=== PATIENT | male | born 1975 | race Caucasian/White ===

== ENCOUNTER 2025-04-03 07:47 | Inpatient (IN) | payer OTHER ==
[~2025-04-03] VITALS: Ht 170.2 cm; Wt 81.7 kg
[2025-04-03 12:29] VITALS: BP 131/103
[2025-04-03] MEDS ORDERED: ABILIFY MYCITE5 M2 PO (13:08)
[2025-04-03] MEDS ORDERED: ATOR80 PO (13:09)
[2025-04-03] MEDS ORDERED: Aspir 8181 MG PO (13:09)
[2025-04-03] MEDS ORDERED: BUSP5 PO (13:11)
[2025-04-03] MEDS ORDERED: CLOBETASOL EMOL15 G1 (13:11)
[2025-04-03] MEDS ORDERED: DULO60 PO (13:12)
[2025-04-03] MEDS ORDERED: CYMBALTA30 M1 PO (13:12)
[2025-04-03] MEDS ORDERED: HYDHCL25 PO (13:13)
[2025-04-03] MEDS ORDERED: LORA.5 PO (13:15)
[2025-04-03] MEDS ORDERED: LOSA50 PO (13:16)
[2025-04-03] MEDS ORDERED: NITR.4SL SL (13:18)
[2025-04-03] MEDS ORDERED: REVATIO20 MG PO (13:21)
[2025-04-03] MEDS ORDERED: TICA90TA PO (13:22)
[2025-04-03] MEDS ORDERED: TIZA4 PO (13:23)
[2025-04-03] MEDS ORDERED: LORazepam 2 MG Tab PO PRN (14:35)
[2025-04-03] MEDS ORDERED: OLANZapine ODT 10 MG Tab MM PRN (14:35)
[2025-04-03] MEDS ORDERED: Ibuprofen 600 MG Tab PO PRN (14:35)
[2025-04-03] MEDS ORDERED: LORazepam 2 MG/ML 1ML Injection IM PRN (14:35)
[2025-04-03] MEDS ORDERED: DiphenhydrAMINE HCl 50 MG/ML 1ML Vial IM PRN (14:40)
[2025-04-03] MEDS ORDERED: Acetaminophen 325 MG TABLET PO PRN (14:40)
[2025-04-03] MEDS ORDERED: Haloperidol Lactate Inj. 5 MG/ML Injection IM PRN (14:40)
[2025-04-03] MEDS ORDERED: HydrOXYzine Pamoate 50 MG Cap PO PRN (14:40)
[2025-04-03] MEDS ORDERED: Haloperidol 5 MG Tab PO PRN (14:40)
[2025-04-03] MEDS ORDERED: Calcium Carbonate 500 MG Tab Chew PO PRN (14:40)
[2025-04-03] MEDS ORDERED: Aluminum Hydroxide 320MG/5ML 473 ML PO PRN (14:40)
[2025-04-03] MEDS ORDERED: Polyethylene Glycol 3350 17 gm PO PRN (14:45)
[2025-04-03] MEDS ORDERED: Ondansetron 4 MG SoluTab MM PRN (14:45)
[2025-04-03] MEDS ORDERED: DiphenhydrAMINE HCl 50 MG Cap PO PRN (14:45)
[2025-04-03] MEDS ORDERED: TraZODone HCl 50 MG Tab PO PRN (14:45)
[2025-04-03] MEDS ORDERED: Melatonin 3 MG Tab PO PRN (14:45)
--- NOTE | 2025-04-03 15:06 | NUR ---
ADMISSION NOTE PT ADMITTED FROM [facility] [place] IN [place]. PT BROUGHT IN AND 2 RN SKIN CHECK DONE WITH OSMIN PITTS. PT ORIENTED TO THE UNIT AND ROOM. PT ATE LUNCH AND INTAKE ASSESSMENT COMPLETED. MEDICATION RECONCILATION COMPLETED. PT ADMITTED FOR INCREASED DEPRESSION AND ANXIETY FOLLOWING HIS AND LOSING HIS JOB.
[2025-04-03] MEDS ORDERED: Nicotine Polacrilex 2 MG Gum PO PRN (16:05)
--- NOTE | 2025-04-03 16:48 | NUR ---
SHIFT SUMMARY PT A/O X4; PLEASANT AND COOPERATIVE WITH CARE. HE WAS ADMITTED FROM [facility] IN [place] FOR INCREASED DEPRESSION AND ANXIETY. HE RECENTLY LOST HIS JOB AND HE AND HIS HAVE . HE CURRENTLY DENIES SI, HI, OR ANY HALLUCINATIONS. HE EXPERIENCED AN EPISODE OF PANIC/ANXIETY AND WAS TREATED PER EMR WITH GOOD EFFECT. HE HAS PARTICIPATED IN ALL GROUPS AND MEALS. HE SHOWERED AND HAS BEEN IN THE DAY ROOM FOR THE MAJORITY OF THE SHIFT. HE IS MONITORED VIA Q15 ROUNDING FOR SAFETY AND WELLNESS.
[2025-04-03 20:00] VITALS: BP 138/83
--- NOTE | 2025-04-04 04:17 | NUR ---
SHIFT SUMMARY: PATIENT WAS IN HIS ROOM AT THE BEGINNING OF THE SHIFT, RESTING ON HIS BED. HE DENIED SUICIDAL IDEATION OR THOUGHTS OF SELF HARMING. HE STATED, "I FEEL SAFE HERE" ([facility]). HE PARTICIPATED IN SNACK AND WRAP UP GROUP AT 1999, AND WAS COMPLIANT WITH EVENING MEDICATIONS. HE STAYED UP FOR A SHORT WHILE AFTER SNACK, THEN WENT TO BED, WHERE HE WAS NOTED TO BE RESTING QUIETLY WITH EYES CLOSED AND RESPIRATIONS CONFIRMED. CONTINUING TO MONITOR FOR SAFETY WITH Q15 MINUTE CHECKS.
[2025-04-04 06:36] LABS: CHOL/HDL RATIO 3.2; Cholesterol 99 mg/dL (50-200); HDL Cholesterol 31 mg/dL (>39); LDL/HDL RATIO 1.5; Low Density Lipoprotein Chol 47 mg/dL (0-110); Triglycerides 105 mg/dL (30-160); Very Low Density Lipoprot Chol 21 mg/dL (6-32)
[2025-04-04 08:05] VITALS: BP 141/106
[2025-04-04] MEDS ORDERED: Multivitamins 1 Tab PO SCH (09:00)
[2025-04-04] MEDS ORDERED: Nitroglycerin 0.4 MG SUBL SL PRN (10:00)
[2025-04-04] MEDS ORDERED: BusPIRone HCl 5 MG Tab PO PRN (10:05)
[2025-04-04] MEDS ORDERED: TiZANidine HCl 4 MG Tab PO PRN (10:05)
[2025-04-04] MEDS ORDERED: DULoxetine HCL 30 MG Cap DR PO ONE (10:45)
[2025-04-04] MEDS ORDERED: Aspirin 81 MG Chew PO ONE (10:45)
[2025-04-04] MEDS ORDERED: DULoxetine HCL 60 MG Capsule DR PO ONE (10:45)
[2025-04-04] MEDS ORDERED: ARIPiprazole 5 MG Tab PO ONE (10:45)
[2025-04-04] MEDS ORDERED: Losartan Potassium 50 MG Tab PO ONE (10:45)
[2025-04-04] MEDS ORDERED: Atorvastatin 40 MG Tab PO ONE (10:50)
[2025-04-04] MEDS ORDERED: Multivitamins 1 Tab PO ONE (10:50)
[2025-04-04 14:03] VITALS: BP 133/103
--- NOTE | 2025-04-04 14:21 | NUR ---
Patient came up to the nursing desk during 1400 group and reported that his arms feel madelaine. vs were taken. diastolic bp slightly elevated. temp 99.3. Patient reports that he did become anxious during group. He plans to have snack and take some time for himself.
[2025-04-04 16:03] VITALS: BP 127/95
--- NOTE | 2025-04-04 16:04 | NUR ---
Patient has been attending groups today. No safety or behavioral concerns. Patient denies thoughts of suicide and self harm, he rates his depression/anxiety 8/. He was given a PRN vistaril this am, before his own medications were ordered. The provider put orders in for his own medications, and then they were given. Patient is not having homicidal thoughts or hallucinations but he is teary. Patient and recently seperated and patient is having a hard time adjusting to the seperation and to the loss of his job. He reports that he spoke with the doctor and told the doctor that he wants to leave on Wednesday. This is unconfirmed information. Patient reports anxiety about discharge transportation. This sports writer educated the patient on the estate planner and how she arranges transportation for patients. Patient then went back into the day area. Check vital sign entries, as they were taken 2x after patient reported that his arms were tingly- second set of vitals are improved.
[2025-04-04] MEDS ORDERED: Ticagrelor 90 MG TABLET PO SCH (21:00)
--- NOTE | 2025-04-05 04:19 | NUR ---
SHIFT SUMMARY: PATIENT WAS IN HIS ROOM LYING ON HIS BED AT THE BEGINNING OF THE SHIFT. HE STATED THAT HE WAS "DOING BETTER" AND "I HOPE TO DISCHARGE SOON". HE ADMITTED TO "SOME SADNESS AND DEPRESSION" BUT STATED "I THINK I CAN COPE WITH IT BETTER." HE HAS HOPES TO MOVE BACK IN WITH HIS , BUT DESPAIR WHEN HE THINKS ABOUT HOW HE IS UNEMPLOYED AT THIS TIME. HE DENIED SUICIDAL IDEATION OR THOUGHTS OF SELF HARMING. HE PARTICIPATED IN SNACK AND WRAP UP GROUP AT 1999 IN THE DINING AREA. HE WAS COMPLIANT WITH MEDICATION ADMINISTRATION. HE WENT BACK TO BED AFTER TAKING HIS MEDICATION AND WAS NOTED TO BE RESTING QUIETLY WITH EYES CLOSED AND RESPIRATIONS CONFIRMED FOR THE REMAINDER OF THE SHIFT. CONTINUING TO MONITOR FOR SAFETY WITH Q15 MINUTE CHECKS.
[2025-04-05] MEDS ORDERED: Metoclopramide HCl 10 MG Tab PO ONE (08:15)
--- NOTE | 2025-04-05 08:56 | NUR ---
PT C/O NAUSEA THIS AM AND CONTINUED VOMITING. SPOKE WITH MD AND OBTAINED ORDER FOR REGLAN WHICH WAS ADMINISTERED NOW. PT STATES "I THINK IT'S JUST NERVES - I HAVE SO MUCH TO DO WHEN I GET HOME. I HAVE TO FILE FOR UNEMPLOYMENT." PT STATES HE VOMITED MULTIPLE TIMES BETWEEN 3 AND 8 AM.
[2025-04-05] MEDS ORDERED: Aspirin 81 MG TabEC PO SCH (09:00)
[2025-04-05] MEDS ORDERED: Losartan Potassium 50 MG Tab PO SCH (09:00)
[2025-04-05] MEDS ORDERED: DULoxetine HCL 30 MG Cap DR PO SCH (09:00)
[2025-04-05] MEDS ORDERED: DULoxetine HCL 60 MG Capsule DR PO SCH (09:00)
[2025-04-05] MEDS ORDERED: Atorvastatin 40 MG Tab PO SCH (09:00)
[2025-04-05] MEDS ORDERED: ARIPiprazole 5 MG Tab PO SCH (09:00)
--- NOTE | 2025-04-05 09:34 | NUR ---
IMPORTANT REFERRAL INFORMATION ITZEL sent electronic referral for services to [facility] crisis team as directed to schedule follow up appointments
--- NOTE | 2025-04-05 09:56 | NUR ---
IMPORTANT HOSPITAL DISCHARGE APPOINTMENT INFORMATION Patient is scheduled to meet with Maria Guadalupe Rayo DO on Wednesday, April 11, 2025 at 1600 // [address] [facility], [address], [place], [place] [address] // [phone] ITZEL entered information into patient's discharge packet
--- NOTE | 2025-04-05 11:14 | NUR ---
IMPORTANT DISCHARGE INFORMATION PATIENT TO BE DISCHARGED TODAY 04/05/25 AT 2:30PM. [facility] [employer] IS COMING TO GET [place]. [facility] [employer] FOLLOW UP APPOINTMENTS: PCP FOLLOW UP/TAYLOR WITH MICHAEL BROWER WEDNESDAY,04/11/25 AT 1600. PHARMACY: [facility]
--- NOTE | 2025-04-05 12:54 | NUR ---
REVIEWED DISCHARGE INSTRUCTIONS WITH PATIENT. HE VERBALIZES UNDERSTANDING OF ALL. PT CONTINUES TO STATE HE WAS NEVER SUICIDAL AND HAS NO PLANS OR DESIRE TO HURT HIMSELF. STATES HE NEEDS TO GET HOME SO HE CAN APPLY FOR UNEMPLOYMENT AND START LOOKING FOR WORK. RIDE ARRANGED BY [employer] RETAIL SELLING FLOOR LEADER THROUGH INS[employer]ANCE COMPANY.
--- NOTE | 2025-04-05 14:40 | NUR ---
DISCHARGE SUMMARY: PT DISCHARGED AT 1439 - WALKED OUT TO [facility] BY NEYMAR WAGNER. PT TO RETURN TO [facility]. PT HAD NO FURTHER QUESTIONS OR CONCERNS UPON DISCHARGE. BELONGINGS/VALUABLES RETURNED TO PATIENT AND FORMS SIGNED. FOLLOW UP APPTS SCHEDULED AND PATIENT AWARE OF ALL. WRITTEN INSTRUCTIONS GIVEN FOR FOLLOW UP.
== END 2025-04-05 14:34 | disposition home or self-care (01) | DRG 885 ==
LOC: BHU 07:47
PROVIDERS: ADMIT Psychiatry & Neurology Psychiatry
DX: F33.2 Major depressive disorder, recurrent severe without psychotic features (principal); R45.851 Suicidal ideations; Z88.2 Allergy status to sulfonamides; Z88.8 Allergy status to other drugs, medicaments and biological substances; Z79.899 Other long term (current) drug therapy; I10 Essential (primary) hypertension; E78.5 Hyperlipidemia, unspecified; Z79.82 Long term (current) use of aspirin
CPT/HCPCS: 36415; 80061; 83036; A9270